=== PATIENT | female | born 1990 | race Two or more races ===

== ENCOUNTER 2020-08-26 21:12 | Emergency (ER) | payer MEDICAID ==
[~2020-08-26] VITALS: Ht 154.9 cm; Wt 86.0 kg
[~2020-08-26 21:12] MED LIST: DOCU-131 PO; FERR325T18 PO; IBUP-1223 PO; OXYC-302 PO; PREN1TAB56 PO
--- NOTE | 2020-08-26 21:42 | NUR ---
.Patient ambulated unassisted to CT with tech and family member present.
[2020-08-26 21:43] VITALS: BP 134/86
--- NOTE | 2020-08-26 22:04 | NUR ---
Patient ambulated from CT unassisted, call cota within reach, vss, nad, will continue to monitor.
[2020-08-26] MEDS ORDERED: IBUPROFEN 800 MG TABLET PO ONE (22:30)
== END 2020-08-26 22:46 | disposition home or self-care (01) ==
LOC: ED 22:43
DX: S02.2XXA Fracture of nasal bones, initial encounter for closed fracture (principal); S06.0X9A Concussion with loss of consciousness of unspecified duration, initial encounter; J45.909 Unspecified asthma, uncomplicated; F17.210 Nicotine dependence, cigarettes, uncomplicated; Y04.8XXA Assault by other bodily force, initial encounter; Y93.89 Activity, other specified; Y92.098 Other place in other non-institutional residence as the place of occurrence of the external cause; Y99.8 Other external cause status
CPT/HCPCS: 70450; 70486; 99285